=== PATIENT | female | born 1970 | race Caucasian/White ===

== ENCOUNTER 2016-10-03 10:04 | Emergency (ER) | payer OTHER ==
[2016-10-03 10:14] VITALS: RESP 18
[2016-10-03] MEDS ORDERED: IBUPROFEN 200 MG TAB PO ONE (10:26)
--- NOTE | 2016-10-03 11:46 | UCPHY ---
H & P Time Seen by Provider: 10/03/16 11:00 Patient Type: Established HPI/ROS: CHIEF COMPLAINT: URI symptoms History by patient HISTORY OF PRESENT ILLNESS: 46-year-old woman presents with 1 week of sinus congestion, runny nose, headache, sore throat, dry cough and occasionally productive of clear bloody mucus as well as blowing her nose with clear bloody mucus. She has also had some ear pain and stuffiness. There is no nausea, vomiting or diarrhea. She denies any rash. She has not had any difficulty breathing or chest pain. She did not get a flu shot this year. She has been taking ibuprofen and Sudafed with minimal relief. REVIEW OF SYSTEMS: As in HPI, and all other systems reviewed and are negative Smoking Status: Never smoked Physical Exam: General Appearance: Alert and no distress. Head: normocephalic, atraumatic, no sinus tenderness Eyes: Pupils equal and round no injection. Ears: TM clear bilat OP: mucus membranes moist, mild erythema, no tonsillar enlargement, no exudates Neck: no meningismus, no cervical nodes, no submandibular nodes Respiratory: Chest is nontender, lungs are clear to auscultation. Cardiac: regular rate and rhythm. Gastrointestinal: Abdomen is soft and nontender, no masses, bowel sounds normal. Musculoskeletal: Neck is supple and nontender. Extremities have full range of motion and are nontender. Skin: No rashes or lesions. Constitutional: Initial Vital Signs Temperature (C) 36.6 C 10/03/16 10:13 Heart Rate 78 10/03/16 10:13 Respiratory Rate 18 10/03/16 10:13 Blood Pressure 137/85 H 10/03/16 10:13 O2 Sat (%) 97 10/03/16 10:13 O2 Delivery Mode Room Air Allergies/Adverse Reactions: erythromycin base Allergy (Verified 02/08/16 14:08) Home Medications: Medication Instructions Recorded Metformin HCl 02/08/16 Sprintec 28 Day Tablet 02/08/16 Thyroid 02/08/16 Medical Decision Making ED Course/Re-evaluation: Patient presents with upper respiratory infection symptoms. There is no evidence of systemic toxicity or bacterial illness. We discussed home care and conservative measures. - Data Points Laboratory Results: 10/03/16 10/03/16 Unknown 10:17 Group A Strep Screen NEGATIVE (NEGATIVE) Group A Strep DNA Pending Medications Given: Discontinued Medications Ibuprofen (Motrin) 600 mg PO EDNOW ONE Stop: 10/03/16 10:27 Last Admin: 10/03/16 10:32 Dose: 600 mg Departure - Departure Disposition: Home, Routine, Self-Care Clinical Impression: Upper respiratory infection Qualifiers: URI type: unspecified viral URI Qualified Code(s): J06.9 - Acute upper respiratory infection, unspecified Condition: Good Instructions: Upper Respiratory Infection (ED) Additional Instructions: You were seen by Dr. Emiliana Bernal today. Return for any worsening or new concerns. Referrals: CLAIRE,UNKNOWN [Other] - As per Instructions - PQRS PQRS Measurement: NA
[2016-10-03 11:58] VITALS: BP 133/67; PULSE 82; TEMP 98.6; O2SAT 95
== END 2016-10-03 11:50 | disposition home or self-care (01) ==
LOC: CED 10:04
DX: J06.9 Acute upper respiratory infection, unspecified (principal)
CPT/HCPCS: 87880-PO; 99214-PO; G0463-PO

== ENCOUNTER → 2017-11-01 | Outpatient (CLI) | payer OTHER | LOC: FIMAGING 15:00 | PROVIDERS: ATTEND Internal Medicine | DX: R05 Cough (principal) ==

== ENCOUNTER → 2018-11-08 | Outpatient (CLI) | payer OTHER | LOC: FIMAGING 07:45 | PROVIDERS: ATTEND Internal Medicine | DX: Z12.31 Encounter for screening mammogram for malignant neoplasm of breast (principal) ==